=== PATIENT | male | born 1945 | race Caucasian/White ===

== ENCOUNTER → 2024-09-22 11:15 | Outpatient (REF) | payer OTHER, SELFPAY | LOC: HWRAD 11:15 | PROVIDERS: ATTENDING PHYSICIAN Family Medicine | DX: S22.31XA Fracture of one rib, right side, initial encounter for closed fracture (principal); R55 Syncope and collapse | CPT/HCPCS: 71101 ==

== ENCOUNTER 2024-09-22 17:05 | Inpatient (IN) | payer OTHER, SELFPAY ==
[2024-09-22 14:01] VITALS: BP 160/80
[2024-09-22 14:26] VITALS: BMI 34.0
[2024-09-22 14:26] LABS: % Basophils 0.2 % (0-2); % Eosinophils 1.8 % (0-6); % Immature Granulocytes 0.3 % (0-0.5); % Lymphocytes 22.3 % (20.5-51.1); % Monocytes 7.8 % (1.7-9.3); % Neutrophils 67.6 % (42.2-75.2); Absolute Eosinophils 0.2 10^3/uL (0-0.7); Absolute Monocytes 0.7 10^3/uL (0.1-0.6); Absolute Neutrophils 6.1 10^3/uL (1.4-6.5); Hematocrit 36.9 % (39.0-52.0); Hemoglobin 12.8 g/dL (13.0-18.0); Mean Corp Hgb Conc. 34.7 g/dL (33.0-37.0); Mean Corpuscular Hgb 33.7 pg (27.0-31.0); Mean Corpuscular Volume 97.1 fL (80.0-94.0); Mean Platelet Volume 9.2 fL (7.4-10.4); Nucleated Red Blood Cells % 0 % (-); Platelet Count 257 10^3/uL (130-400); Red Cell Dist. Width 13.5 % (11.5-14.5)
[2024-09-22 14:27] VITALS: BP 173/83
--- NOTE | 2024-09-22 14:36 | ED.GENMED ---
History of Present Illness
General
Chief Complaint: Fainting/Passed Out
Source: patient
Exam Limitations: none
Time Seen by Provider: 09/22/24 14:22
History of Present Illness
History of Present Illness:
79-year-old male with a syncopal episode while vomiting 2 days ago. Fell hit his right lateral ribs. Complaining of ongoing right lateral rib pain. Also has a Linq recorder for previous near syncope. Contacted his fuel cell assembler who noted a rhythm
issue and was sent immediately to the ER. Patient has no other complaints currently except for right lateral rib pain.
Past History
Past History
ED Past Medical History: GERD, HTN, NIDDM and Other (Pulmonary embolism following a knee replacement December 2008 ); Negative CAD
ED Past Surgical History: Orthopedic (right TKR, right shoulder rotator cuff repair, ulner nerve repair), Tonsilectomy and Other (deviated septum)
Social History
Tobacco: Non-smoker
Alcohol: Occasional
Drug: None
Personal:
Living: with family
Review of Systems
Review of Systems
All Other Systems: Not applicable
Respiratory: Reports no symptoms
ABD/GI: Reports no symptoms
Phy Exam
Physical Exam
Physical Exam:
GENERAL: Alert and oriented in no apparent distress. Normocephalic atraumatic
EYE: Orbits normal.
NECK: Supple
CARDIAC: Regular rate and rhythm without any obvious murmurs.
LUNGS: Clear breath sounds,normal. Tenderness right lateral ribs. No crepitus
ABDOMEN: Soft, without focal tenderness or distention
NEUROLOGICAL: Alert and oriented , grossly non-focal
SKIN: Warm and dry, no rash or lesion, no discoloration, skin intact.
MUSCULOSKELETAL: No edema,no deformity.Good color
PSYCH: Normal and appropriate interaction.
Course
Orders/Labs/Results
Orders:
Orders
09/22/24 14:09
Electrocardiogram (*1) Urgent
Reason for Study: Syncope
EKG- Treatment ONCE
09/22/24 14:18
Complete Blood Count/With Diff Urgent
Comprehensive Metabolic Panel Urgent
PT/INR [Prothrombin Time] Urgent
PTT Urgent
Troponin I Urgent
Abnormal Lab Results
09/22/24
14:18
RBC 3.80 L 10^6/uL
(4.70-6.10)
Hgb 12.8 L g/dL
(13.0-18.0)
Hct 36.9 L %
(39.0-52.0)
MCV 97.1 H fL
(80.0-94.0)
MCH 33.7 H pg
(27.0-31.0)
Absolute Monos (auto) 0.7 H 10^3/uL
(0.1-0.6)
PT 14.8 H Sec
(11.4-14.6)
APTT 35.1 H Sec
(23.4-35.0)
Sodium 132 L mmol/L
(135-145)
Potassium 5.3 H mmol/L
(3.5-5.1)
Glucose 136 H mg/dl
(70-99)
09/22/24 14:18
09/22/24 14:18
Vital Signs
Initial and Last Documented VS:
Initial Vital Signs
Temp Pulse Resp BP Pulse Ox
97.9 F 68 18 160/80 99
09/22/24 14:01 09/22/24 14:01 09/22/24 14:01 09/22/24 14:01 09/22/24 14:01
Last Documented Vital Signs
Temp Pulse Resp BP Pulse Ox
97.9 F 68 18 160/80 99
09/22/24 14:01 09/22/24 14:01 09/22/24 14:01 09/22/24 14:01 09/22/24 14:01
*Radiology
Radiology exam reviewed: preliminary read by ED provider (Outpatient x-rays reviewed. No obvious pneumothorax)
*Pulse Oximetry
Patient hypoxic: no
*EKG
Interpreted by ED Provider?: Yes
Interpretation: abnormal
Comparison EKG: changes noted
Heart Rate: 55
Rate: bradycardiac
[place]: normal axis
Interval: second degree mobitz I
Ischemia: non-specific ST changes
*Tank Pumper Panelboard Interpretation
Rate: bradycardiac
Interpretation: abnormal
Heart Rate: 54
Rhythm: other (Type II Wenke Bach)
*Critical Care Note
Total Time (30-74mins, 75-104mins- exclusive of procedures): Not Applicable
Update Note
Update Note:
Loop recorder showed prolonged asystole. Referred to cardiology.
ED Attending Note
-
Portions of this chart may have been created with voice recognition software.� Occasional wrong word or��sound alike� substitutions may have occurred due to the inherent limitations of voice recognition software.
Discharge Plan
Departure
Patient Disposition: Admit
Date of Disposition: 09/22/24
Time of Disposition: 14:37
Presentation/result/management discussed w/ accepting MD/DO: Cardiology
Discharge Problem:
High degree heart block/syncope, Recent asystole, Right lateral rib trauma
Prescriptions:
No Action
loperamide 2 MG capsule
2 mg PO BIDPRN PRN (Reason: diarrhea)
metformin 500 MG tablet
500 mg PO QPM
atorvastatin 10 MG tablet
10 mg PO DAILY
Vitamin D-3
2,000 units PO DAILY
acyclovir [Zovirax] 400 MG tablet
400 mg PO BID
pantoprazole 40 MG tablet,delayed release (DR/EC)
40 mg PO DAILY Qty: 30 0RF
meloxicam 15 MG tablet
15 mg PO DAILY
tadalafil [Cialis] 2.5 MG tablet
2.5 mg PO PRN PRN (Reason: ED)
codeine-guaifenesin 10 ML liquid
10 ml PO BID PRN (Reason: cough) Qty: 200 0RF
Interventions
Interventions:
*Risk Screen - Suicide Last Done: 09/22/24 14:01
*General Assessment Last Done: 09/22/24 14:36
*Neglect/Abuse Screening Last Done: 09/22/24 14:36
ED- Fall Risk Assessment Last Done: 09/22/24 14:36
*ED COVID-19 Vaccine History Last Done: 09/22/24 14:36
ED- Cardiac Assessment Last Done: 09/22/24 14:36
ED- Neurological Assessment Last Done: 09/22/24 14:36
Discharge Date and Time
Print Language: OMANI
[2024-09-22 14:40] LABS: APTT 35.1 Sec (23.4-35.0); INR 1.11; PT 14.8 Sec (11.4-14.6)
[2024-09-22 14:44] LABS: ALT (SGPT) 18 U/L (0-50); AST (SGOT) 23 U/L (17-59); Albumin 3.9 g/dl (3.5-5.0); Alkaline Phosphatase 46 U/L (38-126); Blood Urea Nitrogen 19 mg/dl (9-20); Calcium 9.2 mg/dl (8.4-10.2); Carbon Dioxide 28 mmol/L (22-30); Chloride 98 mmol/L (98-107); Estimated Creatinine Clearance 59 ml/min; Glucose 136 mg/dl (70-99); Potassium 5.3 mmol/L (3.5-5.1); Sodium 132 mmol/L (135-145); Total Bilirubin 0.4 mg/dl (0.2-1.3); Total Protein 6.3 g/dl (6.3-8.2); eGFR > 60.00
[2024-09-22 14:55] LABS: Troponin I < 0.012 ng/ml
[2024-09-22 15:00] VITALS: BP 104/59
--- NOTE | 2024-09-22 15:07 | CON.CAR ---
Addendum entered and electronically signed by Musa Cheek DO 09/22/24 16:10:
I saw and examined the patient.
The Technical Sales Representative's note was reviewed and I agree with the note.
Comment:
GENERAL: no acute distress, obese
EYE: sclera anicteric
NECK: Supple, no JVD, no carotid bruit appreciated
ENT: normal nose, moist mucosal membranes
CARDIAC: Regular rate and rhythm, occasional ectopy, +S1/S2, no murmur, rubs, or gallops
CHEST/PULMONARY: Normal effort, clear breath sounds; ILR appreciated CIED site well-healed
ABDOMEN: Soft, without focal tenderness or distention
NEUROLOGICAL: Alert and oriented x3
SKIN: Warm and dry, no rash
PSYCH: Normal and appropriate interaction.
Telemetry demonstrating sinus rhythm with occasional second-degree type I AV block.
EKG sinus rhythm second-degree AV block type I
PCP: Dr. Gutierres
Postal Service Clerk: Dr. Lazarus Hale
Impression:
Presented after syncopal episode 09/20
R rib pain
20 second pause on Linq monitor 09/20
Hyperkalemia
Hyponatremia
Recurrent syncope
Wenckebach
Linq monitor 04/05/2023
HTN
HLD
DM2
CKD
h/o prostate cancer
Bronchiectasis
ELIA, untreated
Obesity
Echo 10/25/2019: EF 60-65%, mild cLVH, posterior MAC, mild MR, trace TR, estimated PAP 34 mmHg
Echo 09/22/2024: Study pending
Patient complex individual with recurrent syncope status post ILR implant 2022. Patient experienced an episode of syncope 09/20/2024 associated with nausea and vomiting. Interrogation of his ILR, patient experienced an 8-second
asystolic pause and a 20 second asystolic pause. Patient is a longstanding history of recurrent syncope and has not experienced syncope for roughly 1 year. It was recommended following discussion with patient over the phone by our office that
given his symptomatic asystolic pauses that he should proceed to ED urgently and no longer drive in the setting of syncope with pauses. Patient reports overall feeling well. Patient has any chest pain, palpitations, lightheadedness, dizziness,
near-syncope, syncope, or weakness since the episode on Wednesday. In discussion with him about the pauses that he experienced on the monitor, he denies symptoms associated with them but cannot recall. I reviewed with patient regarding benefits,
risks, alternatives to pacemaker implantation. Regarding pacemaker, we discussed pacemaker indications and device implant in detail. For implant there is an approximate 1:1000 risk of [place]/stroke/ and a 1% risk of
pneumothorax/tamponade/infection/bleeding. We also discussed post procedure implant restrictions including positions to avoid with implant arm for first six weeks after implant as well as driving restrictions. I took time to answer all questions.
We also discussed removal of ILR at the time of pacemaker implant. Patient verbalized understanding and agreed with plan. In further discussion with patient, he reports that he has had a large meal at roughly 1:00 pm. I discussed with anesthesia
regarding possibility of pacemaker implant and if sedation would be possible however, given patient's large meal, anesthesia is unable to perform sedation/anesthesia services for the procedure today. Additionally, conscious sedation not likely to
be an option for this patient given his significant comorbidities including obesity, sleep apnea, bronchiectasis. With this in mind and given patient's current stability (sinus rhythm/sinus rhythm with second-degree type I AV block, hemodynamically
stable, stable blood pressure), will recommend admission to hospitalist service and monitoring on telemetry. ZOLL pads on patient. Plan for implant of pacemaker and ILR removal on 09/25/2024. N.p.o. after midnight 09/24/2024 into Wednesday.
Patient verbalized understanding and agreed with this plan. In the meantime, we will also reassess cardiac function with echocardiogram.
Original Note:
Consultation
Consultation Request
Date/Time Consultation Requested: 09/22/2024
Date/Time Consultation Performed: 09/22/2024
Requesting Provider: Dr. Ku
Performing Provider: Mary Kee PA-C for Dr. Cheek
Reason for Consultation: Syncope, 20 second pause on Linq monitor
Medical History
-
History of Present Illness:
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 He presented to [facility] for evaluation after syncopal episode on .
He reports he had an upset stomach that day and had one episode of vomiting. He reports it was only a single episode of vomiting but then he became dizzy and had syncopal episode. Episode was not witnessed. He came back to and noted severe R sided
rib pain. Pain persisted over the next few days, so he called his PCP for an appointment this AM. He was seen and ordered a rib xray to assess for broken ribs, however given syncope, he was recommended to call the cardiology office for evaluation as
well. He had his Linq monitor disconnected at home, so with the help of device clinic [employer], monitor was rebooted and he was noted to have an 8 second and 20 second pause on 09/20 around the time of syncope. He was therefore referred to ER for PPM
placement. He reports he has been back to his usual state of health and has had no further nausea or vomiting. Denies any fevers, chest pain, palpitations, dizziness, lightheadedness, or SOB. His only ongoing complaint is R rib pain.
PMH:
Recurrent syncope
Wenckebach
Linq monitor 04/05/2023
HTN
HLD
DM2
CKD
h/o prostate cancer
Bronchiectasis
Past Medical History
Past Medical History: Other (In HPI)
Past Surgical History: Other (Linq monitor placement, R TKA, tonsillectomy, b/l cataract surgery, ulnar nerve surgery)
Social History
Tobacco: Non-Smoker
Alcohol: None
Drug: None
Personal:
Living: With Family
Employment: Retired
Family History
Family History: CAD and Diabetes
Allergies / Home Medications
Allergy/AdvReac Type Severity Reaction Status Date / Time
No Known Allergies Allergy Verified 09/22/24 14:09
�Medication �Instructions �Recorded �Confirmed �Type
loperamide 2 mg capsule 2 mg PO BIDPRN PRN diarrhea 11/26/10 04/05/23 History
metformin 500 mg tablet 500 mg PO QPM 12/16/12 04/05/23 History
Vitamin D-3 2,000 units PO DAILY 04/19/14 04/05/23 History
atorvastatin 10 mg tablet 10 mg PO DAILY 04/19/14 04/05/23 History
acyclovir 400 mg tablet (Zovirax) 400 mg PO BID 05/30/15 04/05/23 History
pantoprazole 40 mg tablet,delayed 40 mg PO DAILY #30 tabs 05/30/15 04/05/23 Rx
release
codeine 10 mg-guaifenesin 100 mg/5 10 ml PO BID PRN cough ##200 08/28/19 04/05/23 Rx
mL oral liquid
meloxicam 15 mg tablet 15 mg PO DAILY 08/28/19 04/05/23 History
tadalafil 2.5 mg tablet (Cialis) 2.5 mg PO PRN PRN ED 08/28/19 04/05/23 History
Review of Systems
-
History Source: Patient
All other systems: Negative unless noted
Physical Exam
Vital Signs
Temp Pulse Resp BP Pulse Ox
97.9 F 68 18 160/80 99
09/22/24 14:01 09/22/24 14:01 09/22/24 14:01 09/22/24 14:01 09/22/24 14:01
Lab Results
09/22/24 14:18
09/22/24 14:18
Troponin I < 0.012 ng/ml 09/22/24 14:18
Physical Exam
General: Well Developed, Well Nourished and No Apparent Distress
HEENT: Normocephalic, Anicteric and Moist Mucous Membranes
Respiratory: Clear and Non Labored Respirations
Cardiac: S1/S2 and Regular Rhythm
Musculoskeletal: No Clubbing, No Cyanosis and No Edema
Skin: Warm and Dry
Neuro: AO x 3 and Nonfocal/Grossly Intact
Psych: Calm
Impression / Plan
-
PCP: Dr. Gutierres
Postal Service Clerk: Dr. Lazarus Hale
Impression:
Presented after syncopal episode 09/20
R rib pain
20 second pause on Linq monitor 09/20
Hyperkalemia
Hyponatremia
Recurrent syncope
Wenckebach
Linq monitor 04/05/2023
HTN
HLD
DM2
CKD
h/o prostate cancer
Bronchiectasis
ELIA
Echo 10/25/2019: EF 60-65%, mild cLVH, posterior MAC, mild MR, trace TR, estimated PAP 34 mmHg
Echo 09/22/2024: Study pending
Plan:
-Presented after syncopal episode 09/20. Linq monitor noted 8 second and 20 second pause 09/20 around the time of syncope.
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
-Syncopal episode on 09/20/2024 was the first episode since Linq monitor implanted.
-Discussed PPM implant with patient and he is agreeable. Unfortunately, patient had a full meal this afternoon at approximately 1PM.
-After discussion w/ anesthesia, would be high risk to proceed w/ PPM implant today. Will admit for observation over the weekend and will proceed with PPM implant Tuesday 09/25.
-OK to eat as no procedures planned today.
-Check echo. Prior echo in 2019 with preserved EF and mild MR. Reportedly had echo at outside hospital in 2021 in the setting of syncope, however report unavailable to review.
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 HR 55 bpm.
-Troponin negative x1. No chest pain.
-K 5.3, continue to follow.
-Patient's only complaint is ongoing R rib pain. Had rib series xray this AM as OP. Official report pending. Continue pain management per ED team/primary service.
-BP elevated in ER, continue to follow. Not on any antihypertensive medications.
-Continue lipitor 10mg daily.
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 He presented to [facility] for evaluation after syncopal episode on .
He reports he had an upset stomach that day and had one episode of vomiting. He reports it was only a single episode of vomiting but then he became dizzy and had syncopal episode. Episode was not witnessed. He came back to and noted severe R sided
rib pain. Pain persisted over the next few days, so he called his PCP for an appointment this AM. He was seen and ordered a rib xray to assess for broken ribs, however given syncope, he was recommended to call the cardiology office for evaluation as
well. He had his Linq monitor disconnected at home, so with the help of device clinic [employer], monitor was rebooted and he was noted to have an 8 second and 20 second pause on 09/20 around the time of syncope. He was therefore referred to ER for PPM
placement. He reports he has been back to his usual state of health and has had no further nausea or vomiting. Denies any fevers, chest pain, palpitations, dizziness, lightheadedness, or SOB. His only ongoing complaint is R rib pain.
Data Reviewed
-
EKG: Tracing Personally Visualized and interpreted
Labs: Labs Reviewed by me
Old Records: Reviewed
[2024-09-22 16:00] VITALS: BP 116/52
--- NOTE | 2024-09-22 16:46 | HPS.HSE ---
Family Physician
-
Family Physician: Neeru Rizzo
Chief Complaint
-
syncope
History of Present Illness
79-year-old male past medical history of prior syncopal episodes with Linq monitor, hypertension, hyperlipidemia, diabetes, CKD, prostate cancer, bronchiectasis, obstructive sleep apnea, obesity, presenting with syncope.
Patient experienced syncopal episode on 09/20 with nausea and vomiting. He fell onto his right lateral ribs. He is complaining of ongoing right lateral rib pain.
He contacted his high court justice who noted a rhythm issue and was sent immediately to the emergency room. As per cardiology interrogation of the Linq monitor showed 8-second asystolic pause and 22nd asystolic pause. He has a history of recurrent
syncope but has not had syncope for 1 year.
Patient denies chest pain, palpitation, lightheadedness or dizziness or weakness since the episode 2 days ago.
He denies smoking. He drinks a beer occasionally.
Medical History
Past Medical History
Past Medical History: Reports Other (prior syncopal episodes with Linq monitor, hypertension, hyperlipidemia, diabetes, CKD, prostate cancer, bronchiectasis, obstructive sleep apnea, obesity,)
Past Surgical History: Reports None
Social History
Tobacco: Non-smoker
Alcohol: Occasional
Drug: None
Family History
Family History: Not pertinent
Allergies / Home Medications
Allergies reflects when Allergies were last updated in [employer].
Home Medications with original date entered in [employer]
Allergy/Medication List:
Allergies
Allergy/AdvReac Type Severity Reaction Status Date / Time
No Known Allergies Allergy Verified 09/22/24 14:09
Home Medications
loperamide 2 mg capsule 2 mg PO BIDPRN PRN diarrhea 11/26/10
metformin 500 mg tablet 500 mg PO QPM 12/16/12
atorvastatin 10 mg tablet 10 mg PO DAILY 04/19/14
cholecalciferol (vitamin D3) 25 mcg (1,000 unit) tablet (Vitamin D3) 25 mcg PO DAILY ##0 04/19/14
pantoprazole 40 mg tablet,delayed release 40 mg PO DAILY #30 tabs 05/30/15
meloxicam 15 mg tablet 15 mg PO DAILY 08/28/19
acyclovir 400 mg tablet 400 mg PO BID 09/22/24
albuterol sulfate 1.25 mg/3 mL solution for nebulization 1.25 mg inhalation R DAILY 09/22/24
azelastine 137 mcg (0.1 %) nasal spray 1 spray intranasal DAILY 09/22/24
tamsulosin 0.4 mg capsule (Flomax) 0.4 mg PO DAILY 09/22/24
umeclidinium 62.5 mcg-vilanterol 25 mcg/actuation powdr for inhalation (Anoro Ellipta) 1 inh inhalation R DAILY 09/22/24
Review of Systems
-
History Source: Patient
A 12 point ROS was completed and negative except as noted: Yes
Constitutional: Reports No Symptoms
EENT: Reports No Symptoms
Respiratory: Reports See HPI
Cardiac: Reports See HPI
Abdomen/GI: Reports No Symptoms
: Reports No Symptoms
Musculoskeletal: Reports No Symptoms
Skin: Reports No Symptoms
Neurological: Reports No Symptoms
Endocrine: Reports No Symptoms
Hematologic/Lymphatic: Reports No Symptoms
Psych: Reports No Symptoms
Physical Exam
Vital Signs
Vital Signs
Temp Pulse Resp BP Pulse Ox
97.9 F 68 18 160/80 99
09/22/24 14:01 09/22/24 14:01 09/22/24 14:01 09/22/24 14:01 09/22/24 14:01
Physical Exam
General: Well Developed, Well Nourished and No Apparent Distress
HEENT: NormoCephalic, Moist mucous membranes and Atraumatic
Respiratory: Clear
Cardiac: S1/S2 and Regular Rhythm; No Murmur or Rub
GI: Soft, Non Tender, Non Distended and Normal Bowel Sounds; No Organomegaly
Rectal: Deferred by Provider
Musculoskeletal: No Clubbing, No Cyanosis and No Edema
Skin: No Rash
Neuro: Nonfocal/grossly intact
Laboratory Results
-
09/22/24 14:18
09/22/24 14:18
Laboratory Results
PT 14.8 Sec (11.4-14.6) H 09/22/24 14:18
INR 1.11 09/22/24 14:18
APTT 35.1 Sec (23.4-35.0) H 09/22/24 14:18
Total Bilirubin 0.4 mg/dl (0.2-1.3) 09/22/24 14:18
AST 23 U/L (17-59) 09/22/24 14:18
ALT 18 U/L (0-50) 09/22/24 14:18
Alkaline Phosphatase 46 U/L (38-126) 09/22/24 14:18
Troponin I < 0.012 ng/ml 09/22/24 14:18
Data Reviewed
-
Lab Data: Labs Reviewed by me
Old Records: Reviewed
Impression/Plan
-
IMPRESSION:
PLAN:
# Syncope secondary to asystolic pauses
# History of recurrent syncopal episodes with Linq monitor
-Original plan was for pacemaker placement today however patient had a large meal and pacemaker has been postponed to Wednesday
-N.p.o. past midnight on Wednesday night for pacemaker Wednesday morning
-Patient currently in Wenckebach rhythm with heart rate of 55 as per EKG, hemodynamically stable
-Chest/rib x-ray unremarkable
-Echo pending
-Cardiology following
# Hyperkalemia
-Continue to monitor
Arthritis
-Continue meloxicam
Essential hypertension
Hyperlipidemia
-Continue statin
Type 2 diabetes
-Hold metformin
-On sliding scale
CKD
Prostate cancer
-Continue tamsulosin
Obstructive sleep apnea
Bronchiectasis
-Continue inhalers
Obesity
Herpes prevention
-Continue Valtrex
Full code
DVT prophylaxis�heparin
Regular diet
[2024-09-22] MEDS: TYLENOL 650 MG PO (17:49)
[2024-09-22 19:00] VITALS: BP 152/81; BMI 33.2
[2024-09-22] MEDS: MOBIC PO (21:48)
[2024-09-22] MEDS: LIPITOR PO (21:48)
[2024-09-22] MEDS: FLOMAX PO (21:48)
[2024-09-22] MEDS: PROTONIX PO (21:48)
[2024-09-22] MEDS: ZOVIRAX PO (21:50)
[2024-09-22 22:00] LABS: Glucose - Point of Care 127 mg/dl (70-99)
[2024-09-22 22:54] VITALS: BP 112/63
[2024-09-23] VITALS (7 sets, daily range): BP systolic 98–141; BP diastolic 46–105
--- NOTE | 2024-09-23 01:01 | PTCARENOTE ---
Received pt from ER into 2255. AAOx3 SB with Mobitz 1 A/V block on the monitor BP stable. Ambulatory in the room. Call bernal within reach.
[2024-09-23] MEDS: HEPARIN 5000 UNITS SC ×4 (01:29→22:59)
[2024-09-23 02:50] LABS: % Basophils 0.4 % (0-2); % Eosinophils 3.4 % (0-6); % Immature Granulocytes 0.1 % (0-0.5); % Lymphocytes 30.1 % (20.5-51.1); % Monocytes 8.9 % (1.7-9.3); % Neutrophils 57.1 % (42.2-75.2); Absolute Eosinophils 0.3 10^3/uL (0-0.7); Absolute Lymphocytes 2.3 10^3/uL (1.2-3.4); Absolute Monocytes 0.7 10^3/uL (0.1-0.6); Absolute Neutrophils 4.3 10^3/uL (1.4-6.5); Hemoglobin 12.7 g/dL (13.0-18.0); Mean Corp Hgb Conc. 34.3 g/dL (33.0-37.0); Mean Corpuscular Hgb 33.1 pg (27.0-31.0); Mean Corpuscular Volume 96.4 fL (80.0-94.0); Mean Platelet Volume 9.5 fL (7.4-10.4); Nucleated Red Blood Cells % 0 % (-); Platelet Count 244 10^3/uL (130-400); Red Blood Cell Count 3.84 10^6/uL (4.70-6.10); Red Cell Dist. Width 13.5 % (11.5-14.5); White Blood Cell Count 7.6 10^3/uL (4.8-10.8)
[2024-09-23] MEDS: TORADOL 15 MG IV (03:00)
[2024-09-23 03:03] LABS: ALT (SGPT) 18 U/L (0-50); AST (SGOT) 20 U/L (17-59); Albumin 3.8 g/dl (3.5-5.0); Alkaline Phosphatase 51 U/L (38-126); Blood Urea Nitrogen 19 mg/dl (9-20); Carbon Dioxide 24 mmol/L (22-30); Chloride 103 mmol/L (98-107); Estimated Creatinine Clearance 77 ml/min; Glucose 103 mg/dl (70-99); Potassium 4.4 mmol/L (3.5-5.1); Sodium 136 mmol/L (135-145); Total Bilirubin 0.3 mg/dl (0.2-1.3); Total Protein 6.1 g/dl (6.3-8.2); eGFR > 60.00
--- NOTE | 2024-09-23 03:20 | PTCARENOTE ---
Pt c/o rt rib pain stated that it is preventing him from falling asleep. Tylenol and Lidocaine patch was offered but he refused 'they won't help. If I don't get something stronger then I will leave in the morning and return Wednesday for the
procedure.' Lai Ospina DIRECTOR NEWS notified and ordered 15 mg Toradol IVP.
--- NOTE | 2024-09-23 06:33 | W.PN.HOSP.TC ---
Today's Communication/Plan
-
Treat rib pain
c/w tele
Assessment / Plan
Assessment / Plan
Physical Exam
General: Well Developed, Well Nourished and No Apparent Distress
HEENT: Normocephalic, Moist mucous membranes and Atraumatic
Respiratory: limited, no wheezes
Cardiac: S1/S2
GI: Soft, Non Tender,obese.
Rectal: No bleeding.
Musculoskeletal: No Clubbing, No Cyanosis and No Edema. Back: tenderness around right lower posterior chest wall, no swelling or bruising.
Skin: No Rash
Neuro: Nonfocal/grossly intact, oriented X3
Psych: calm
# Syncope secondary to asystolic pauses
# History of recurrent syncopal episodes with Linq monitor
-Original plan was for pacemaker placement today however patient had a large meal and pacemaker has been postponed to Wednesday
-N.p.o. past midnight on Wednesday night for pacemaker Wednesday
-Patient currently in Wenckebach rhythm with heart rate of 55 as per EKG, hemodynamically stable
-Chest/rib x-ray unremarkable
-Echo pending
-Cardiology following
# Hyperkalemia
-Continue to monitor
Arthritis
-Continue meloxicam
Essential hypertension
Hyperlipidemia
-Continue statin
Type 2 diabetes
-Hold metformin
-On sliding scale
CKD
Prostate cancer
-Continue tamsulosin
Obstructive sleep apnea
Bronchiectasis
-Continue inhalers
Obesity
Herpes prevention
-Continue Valtrex
Full code
DVT prophylaxis�heparin
Regular diet
Total time spent to see the patient, examine the patient, review data and lab results, discuss the treatment plan with patient, nursing staff around 55 minutes
Anticipated Discharge: > 48 hours
Subjective/Interval History
-
Date of Service: September 23, 2024
Right sided rib pain
No chest pain
No sob
Objective Data
-
Labs:
Laboratory Results
09/23/24
02:28
WBC 7.6
Hgb 12.7 L
Hct 37.0 L
Plt Count 244
Sodium 136
Potassium 4.4
Chloride 103
Carbon Dioxide 24
BUN 19
Creatinine 0.9
Glucose 103 H
Calcium 9.0
Total Bilirubin 0.3
AST 20
ALT 18
Alkaline Phosphatase 51
Vital Signs:
Vital Signs
Temp Pulse Resp BP Pulse Ox
98.5 F 48 15 141/61 97
09/23/24 03:01 09/23/24 03:01 09/23/24 03:01 09/23/24 02:55 09/23/24 03:01
I&O
09/21/24 09/22/24 09/23/24
06:59 06:59 06:59
Output Total 700 / 700
Balance -700 / -700
--- NOTE | 2024-09-23 06:56 | W.PN.CARDCBS ---
Addendum entered and electronically signed by Marvin Tran MD 09/23/24 08:04:
Patient seen and examined
Agree with notes and assessment
Agree with plan
Telemetry reviewed without significant pause and periods of 2-1 and 3-2 periodicity
Exam:
Physical Exam
General: no apparent distress, not acutely ill
Neck: supple. no meningeal signs. normal psoterior pharynx
Heart: s1/s2 regular rate and rhythm, no murmur. equal radial pulses.
Lungs: no acute respiratory distress. clear bilaterally
Abdomen: normal bowel sounds. not tender. no CVAT
Neuro: alert and oriented. no focal neurological deficits
Skin: no rash
Psychiatric: well kept. interactive and cooperative
Extremities: no edema. no calf tenderness. negative homans. good distal pulses
Impression:
Presented after syncopal episode 09/20
R rib pain
20 second pause on Linq monitor 09/20
Hyperkalemia
Hyponatremia
Recurrent syncope
Wenckebach
Linq monitor 04/05/2023
HTN
HLD
DM2
CKD
h/o prostate cancer
Bronchiectasis
ELIA
Echo 10/25/2019: EF 60-65%, mild cLVH, posterior MAC, mild MR, trace TR, estimated PAP 34 mmHg
Echo 09/22/2024: EF 55 to 60%, mild concentric LVH, mitral sclerosis, mild MR, mild TR, estimated PAP 30 to 35 mmHg
Plan:
-Presented after syncopal episode 09/20. Linq monitor noted 8 second and 20 second pause 09/20 around the time of syncope. Evaluated by Dr. Cheek yesterday in the afternoon.
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
-No significant pauses noted on telemetry overnight.
-Patient is agreeable to proceed w/ PPM implant Angelito09/25. Please note EP evaluation yesterday. He ate lunch yesterday and it was deemed too high risk to do the implant yesterday. As such she is on for Tuesday 09/25
-Only complaint is significant R rib pain. Discussed w/ hospitalist who will provide stronger rx for pain management.
-Echo 09/22 noted preserved EF with mild MR, stable form echo in 2019.
-Continue lipitor 10mg daily.
Original Note:
Today's Communication / Plan
-
Continue pain management per primary service
Follow on tele
PPM Tuesday 09/25
Impression / Plan
-
PCP: Dr. Gutierres
Coremaker Apprentice: Dr. Lazarus Hale
Impression:
Presented after syncopal episode 09/20
R rib pain
20 second pause on Linq monitor 09/20
Hyperkalemia
Hyponatremia
Recurrent syncope
Wenckebach
Linq monitor 04/05/2023
HTN
HLD
DM2
CKD
h/o prostate cancer
Bronchiectasis
ELIA
Echo 10/25/2019: EF 60-65%, mild cLVH, posterior MAC, mild MR, trace TR, estimated PAP 34 mmHg
Echo 09/22/2024: EF 55 to 60%, mild concentric LVH, mitral sclerosis, mild MR, mild TR, estimated PAP 30 to 35 mmHg
Plan:
-Presented after syncopal episode 09/20. Linq monitor noted 8 second and 20 second pause 09/20 around the time of syncope.
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
-No significant pauses noted on telemetry overnight. HR stable this AM.
-Patient is agreeable to proceed w/ PPM implant Wednesday, 09/25.
-Only complaint is significant R rib pain. Discussed w/ hospitalist who will provide stronger rx for pain management.
-Echo 09/22 noted preserved EF with mild MR, stable form echo in 2019.
-Continue lipitor 10mg daily.
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 He presented to [facility] for evaluation after syncopal episode on .
He reports he had an upset stomach that day and had one episode of vomiting. He reports it was only a single episode of vomiting but then he became dizzy and had syncopal episode. Episode was not witnessed. He came back to and noted severe R sided
rib pain. Pain persisted over the next few days, so he called his PCP for an appointment this AM. He was seen and ordered a rib xray to assess for broken ribs, however given syncope, he was recommended to call the cardiology office for evaluation as
well. He had his Linq monitor disconnected at home, so with the help of device clinic [employer], monitor was rebooted and he was noted to have an 8 second and 20 second pause on 09/20 around the time of syncope. He was therefore referred to ER for PPM
placement. He reports he has been back to his usual state of health and has had no further nausea or vomiting. Denies any fevers, chest pain, palpitations, dizziness, lightheadedness, or SOB. His only ongoing complaint is R rib pain.
Progress Note - Coremaker Apprentice
Subjective
Date of Service: September 23, 2024
Only complaint is ongoing R rib pain. No dizziness/lightheadedness
Objective
Labs:
09/23/24 02:
09/23/24:
Labs
Hgb 12.7 g/dL (13.0-18.0) L 09/23/24
Hct 37.0 % (39.0-52.0) L 09/23/24:
Plt Count 244 10^3/uL (130-400) 09/23/24
PT 14.8 Sec (11.4-14.6) H 09/22/24 14:18
INR 1.11 09/22/24 14:18
APTT 35.1 Sec (23.4-35.0) H 09/22/24 14:18
Sodium 136 mmol/L (135-145) 09/23/24 02:28
Potassium 4.4 mmol/L (3.5-5.1) 09/23/24 02:28
BUN 19 mg/dl (9-20) 09/23/24 02:28
Creatinine 0.9 mg/dL (0.7-1.3) 09/23/24 02:28
Glucose 103 mg/dl (70-99) H 09/23/24 02:28
Troponins
09/22/24
14:18
Troponin I < 0.012
Vital Signs and I&O:
Vital Signs
Temp Pulse Resp BP Pulse Ox
98.5 F 48 15 141/61 97
09/23/24 03:01 09/23/24 03:01 09/23/24 03:01 09/23/24 02:55 09/23/24 03:01
Vital Signs
Temp Pulse Resp BP Pulse Ox
98.5 F 48 15 141/61 97
09/23/24 03:01 09/23/24 03:01 09/23/24 03:01 09/23/24 02:55 09/23/24 03:01
Intake & Output
09/20/24 09/21/24 09/22/24 09/23/24
06:59 06:59 06:59 06:59
Output Total 1100 / 1100
Balance -1100 / -1100
Physical Exam
Physical Exam
GEN: No distress, awake, alert, oriented x3
HEENT: supple, anicteric, mmm
LUNGS: CTA b/l, no wheezes/rales
CV: Reg, S1/S2, no murmur
EXT: No clubbing, cyanosis, or edema
NEURO: Gross non-focal
SKIN: Warm, dry, no rash
[2024-09-23] MEDS: DILAUDID 0.5 MG IV ×4 (07:15→23:32)
[2024-09-23] MEDS: STRIVERDI RESPIMAT 2 PUFF INH (08:44)
[2024-09-23] MEDS: SPIRIVA RESPIMAT 2.5 MCG 2 PUFF INH (08:44)
[2024-09-23] MEDS: VENTOLIN NEBULES 1.25 MG INH (08:44)
[2024-09-23 09:06] LABS: Glycohemoglobin (HgbA1c) 5.6 % (4.0-5.6)
[2024-09-23 09:54] LABS: Glucose - Point of Care 131 mg/dl (70-99)
[2024-09-23] MEDS: LIPITOR 10 MG PO (09:55)
[2024-09-23] MEDS: MOBIC 15 MG PO (09:55)
[2024-09-23] MEDS: TYLENOL 1000 MG PO ×3 (09:55→22:59)
[2024-09-23] MEDS: FLOMAX 0.4 MG PO (09:55)
[2024-09-23] MEDS: PROTONIX 40 MG PO (09:55)
[2024-09-23] MEDS: ZOVIRAX 400 MG PO ×2 (09:57→19:31)
[2024-09-23 12:40] LABS: Glucose - Point of Care 81 mg/dl (70-99)
[2024-09-23 17:16] LABS: Glucose - Point of Care 100 mg/dl (70-99)
[2024-09-23 19:05] LABS: Magnesium 2.2 mg/dl (1.6-2.3); Potassium 4.2 mmol/L (3.5-5.1)
--- NOTE | 2024-09-23 19:18 | PTCARENOTE ---
Pt obtained better rib pain relief with dilaudid every 4-5 hours . Telemetry continues with second degree, Mobitz 1 rhythm, several 2 second pauses. At @18:15 pt had several seconds of VT, he was asymptomatic. notified, potassium and
magnesium checked, both acceptable. Will monitor closely.
Pt and his were shown a pacemaker . Activity and driving guidelines were explained and understood.
[2024-09-23] MEDS: FLUSH (NSS) 1 FLUSH IV ×2 (19:33→23:33)
[2024-09-23 20:58] LABS: Glucose - Point of Care 101 mg/dl (70-99)
--- NOTE | 2024-09-23 21:27 | PTCARENOTE ---
Received patient at change of shift. Patient awake, alert, and oriented in bed. Pt c/o right side back/rib pain-- found if he puts pressure directly on location-- helps pain. RN massaged spot and patient 'felt better.' Gave dilaudid for 07/06-- see
NOV. BP 117/68, Mobitz 1 50s with pauses, 97% on room air. Patient did have run of VT right before change of shift. Dr. Tran ordered Mag and K labs. Results WNL-- notified Dr. Tran. No change in plan for time being. RN to inform Dr. Tran
with sustained VT or if patient becomes symptomatic. Discussed this with patient. Verbalized letting RN know of any changes. Call bernal within reach.
[2024-09-24 05:18] VITALS: BP 105/60
[2024-09-24] MEDS: DILAUDID 0.5 MG IV ×2 (05:22→23:28)
--- NOTE | 2024-09-24 06:22 | W.PN.HOSP.TC ---
Today's Communication/Plan
-
NPO past MN
CBC and BMP in AM
CT chest to look at chest wall
c/w pain control
Assessment / Plan
Assessment / Plan
Physical Exam
General: Well Developed, Well Nourished and No Apparent Distress
HEENT: Normocephalic, Moist mucous membranes and Atraumatic
Respiratory: limited, no wheezes. Tenderness on right lower posterior chest wall
Cardiac: S1/S2
GI: Soft, Non Tender,obese.
Rectal: No bleeding.
Musculoskeletal: No Clubbing, No Cyanosis and No Edema. Back: tenderness around right lower posterior chest wall, no swelling or bruising.
Skin: No Rash
Neuro: Nonfocal/grossly intact, oriented X3
Psych: calm
# Right posterior chest wall pain
Tenderness on palpation, no bruising or swelling. No hypoxia.
started after he fell and direct trauma
X ray no fractures but could have missed it due to acuity of event
c/w Tylenol and PRN Dilaudid for now
Order CT chest
# Syncope secondary to asystolic pauses
# History of recurrent syncopal episodes with Linq monitor
-Original plan was for pacemaker placement today however patient had a large meal and pacemaker has been postponed to Wednesday
-N.p.o. past midnight on Wednesday night for pacemaker Wednesday morning
-Patient currently in Wenckebach rhythm with heart rate of 55 as per EKG, hemodynamically stable
-Chest/rib x-ray unremarkable
-Echo pending
-Cardiology following
# Hyperkalemia
-Continue to monitor
Arthritis
-Continue meloxicam
Essential hypertension
Hyperlipidemia
-Continue statin
Type 2 diabetes
-Hold metformin
-On sliding scale
CKD
Prostate cancer
-Continue tamsulosin
Obstructive sleep apnea
Bronchiectasis
-Continue inhalers
Obesity
Herpes prevention
-Continue Valtrex
Full code
DVT prophylaxis�heparin
Regular diet
Total time spent to see the patient, examine the patient, review data and lab results, discuss the treatment plan with patient, nursing staff around 55 minutes
Anticipated Discharge: 24 - 48 hours
Subjective/Interval History
-
Date of Service: September 24, 2024
Still right rib pain requiring Dilaudid
no chest pain
Objective Data
-
Labs:
Laboratory Results
09/23/24
18:44
Potassium 4.2
Vital Signs:
Vital Signs
Temp Pulse Resp BP Pulse Ox
98.0 F 52 16 105/60 92
09/24/24 05:17 09/24/24 05:30 09/24/24 05:17 09/24/24 05:18 09/24/24 05:18
I&O
09/22/24 09/23/24 09/24/24
06:59 06:59 06:59
Intake Total 400 / 400
Output Total 1100 / 1100 525 / 525
Balance -1100 / -1100 -125 / -125
[2024-09-24 07:05] VITALS: BP 130/75
[2024-09-24] MEDS: SPIRIVA RESPIMAT 2.5 MCG 2 PUFF INH (07:40)
[2024-09-24] MEDS: VENTOLIN NEBULES 1.25 MG INH (07:42)
[2024-09-24] MEDS: STRIVERDI RESPIMAT 2 PUFF INH (07:42)
--- NOTE | 2024-09-24 08:37 | W.PN.CARDCBS ---
Today's Communication / Plan
-
Electrolytes checked and reviewed
Monitor on telemetry
Pacer 09/25
N.p.o. after midnight
Impression / Plan
-
PCP: Dr. Gutierres
Ed Manager: Dr. Lazarus Hale
Impression:
Presented after syncopal episode 09/20
R rib pain
20 second pause on Linq monitor 09/20
Hyperkalemia
Hyponatremia
Recurrent syncope
Wenckebach
Linq monitor 04/05/2023
HTN
HLD
DM2
CKD
h/o prostate cancer
Bronchiectasis
ELIA
Echo 10/25/2019: EF 60-65%, mild cLVH, posterior MAC, mild MR, trace TR, estimated PAP 34 mmHg
Echo 09/22/2024: EF 55 to 60%, mild concentric LVH, mitral sclerosis, mild MR, mild TR, estimated PAP 30 to 35 mmHg
Plan:
-Presented after syncopal episode 09/20. Linq monitor noted 8 second and 20 second pause 09/20 around the time of syncope.
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
-No significant pauses noted on telemetry overnight. HR stable this AM. He did have 2 short runs of asymptomatic nonsustained ventricular tachycardia yesterday with electrolytes checked and normal. Will monitor closely for bradycardia dependent
ventricular arrhythmias. These ventricular arrhythmias are likely related to his bradycardia and should be treated by the pacemaker. May need to consider outpatient ischemic evaluation
-Patient is agreeable to proceed w/ PPM implant Wednesday, 09/25.
-Only complaint is significant R rib pain. Discussed w/ hospitalist who will provide stronger rx for pain management.
-Echo 09/22 noted preserved EF with mild MR, stable form echo in 2019.
-Continue lipitor 10mg daily.
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 He presented to [facility] for evaluation after syncopal episode on .
He reports he had an upset stomach that day and had one episode of vomiting. He reports it was only a single episode of vomiting but then he became dizzy and had syncopal episode. Episode was not witnessed. He came back to and noted severe R sided
rib pain. Pain persisted over the next few days, so he called his PCP for an appointment this AM. He was seen and ordered a rib xray to assess for broken ribs, however given syncope, he was recommended to call the cardiology office for evaluation as
well. He had his Linq monitor disconnected at home, so with the help of device clinic [employer], monitor was rebooted and he was noted to have an 8 second and 20 second pause on 09/20 around the time of syncope. He was therefore referred to ER for PPM
placement. He reports he has been back to his usual state of health and has had no further nausea or vomiting. Denies any fevers, chest pain, palpitations, dizziness, lightheadedness, or SOB. His only ongoing complaint is R rib pain.
Progress Note - Ed Manager
Subjective
Date of Service: September 24, 2024
No changes
Reviewed telemetry
Objective
Labs:
09/23/24 02:28
09/23/24 18:44
Labs
Hgb 12.7 g/dL (13.0-18.0) L 09/23/24 02:28
Hct 37.0 % (39.0-52.0) L 09/23/24 02:28
Plt Count 244 10^3/uL (130-400) 09/23/24 02:28
PT 14.8 Sec (11.4-14.6) H 09/22/24 14:18
INR 1.11 09/22/24 14:18
APTT 35.1 Sec (23.4-35.0) H 09/22/24 14:18
Sodium 136 mmol/L (135-145) 09/23/24 02:28
Potassium 4.2 mmol/L (3.5-5.1) 09/23/24 18:44
BUN 19 mg/dl (9-20) 09/23/24 02:28
Creatinine 0.9 mg/dL (0.7-1.3) 09/23/24 02:28
Glucose 103 mg/dl (70-99) H 09/23/24 02:28
Troponins
09/22/24
14:18
Troponin I < 0.012
Vital Signs and I&O:
Vital Signs
Temp Pulse Resp BP Pulse Ox
97.9 F 58 16 130/75 96
09/24/24 07:02 09/24/24 07:48 09/24/24 07:48 09/24/24 07:05 09/24/24 07:48
Vital Signs
Temp Pulse Resp BP Pulse Ox
97.9 F 58 16 130/75 96
09/24/24 07:02 09/24/24 07:48 09/24/24 07:48 09/24/24 07:05 09/24/24 07:48
Intake & Output
09/22/24 09/23/24 09/24/24 09/25/24
06:59 06:59 06:59 06:59
Intake Total 400 / 400
Output Total 1100 / 1100 525 / 525
Balance -1100 / -1100 -125 / -125
Physical Exam
Physical Exam
����Physical Exam
���������������������General:��no apparent distress, not acutely ill
���������������������������Neck:��supple. no meningeal signs. normal psoterior pharynx
������������������������
���������������������������Heart:��s1/s2 regular rate and rhythm, no murmur. equal radial pulses.
��������������������������Lungs: ��no acute respiratory distress. clear bilaterally
����������������������Abdomen:�normal bowel sounds. not tender. no CVAT
��������������������������Neuro:��alert and oriented. no focal neurological deficits
������������������������������Skin: ��no rash
�����������������������Psychiatric:�well kept. interactive and cooperative
�����������������������Extremities:��no edema. no calf tenderness. negative homans. good distal pulses
��
�
[2024-09-24 09:25] LABS: Glucose - Point of Care 98 mg/dl (70-99)
[2024-09-24] MEDS: TYLENOL 1000 MG PO ×3 (09:25→21:00)
[2024-09-24] MEDS: PROTONIX 40 MG PO (09:25)
[2024-09-24] MEDS: LIPITOR 10 MG PO (09:25)
[2024-09-24] MEDS: FLOMAX 0.4 MG PO (09:26)
[2024-09-24] MEDS: MOBIC 15 MG PO (09:26)
[2024-09-24] MEDS: ZOVIRAX 400 MG PO ×2 (09:26→20:59)
[2024-09-24] MEDS: HEPARIN 5000 UNITS SC ×3 (09:26→23:28)
[2024-09-24] MEDS: MIRALAX 17 GRAMS PO (10:38)
[2024-09-24 11:58] VITALS: BP 133/77
[2024-09-24 12:19] LABS: Glucose - Point of Care 109 mg/dl (70-99)
[2024-09-24 15:54] VITALS: BP 133/76
[2024-09-24 17:08] LABS: Glucose - Point of Care 122 mg/dl (70-99)
--- NOTE | 2024-09-24 18:30 | PTCARENOTE ---
Pt had CT scan chest, mildly displaced rib fractures noted. Pt OOB to chair for most of the day, pt walking with walker. Pt not requesting dilaudid and states adequate pain control with tylenol and meloxicam. Telemetry shows continued mobitz type 1
rhythm with multiple 2 second pauses. Plan for pacemaker on 09/25.
[2024-09-24 20:01] VITALS: BP 137/90
--- NOTE | 2024-09-24 21:20 | PTCARENOTE ---
Received patient at change of shift. Patient sitting in chair, awake, alert, and oriented. Rib pain managed much better today-- used walker to help with ambulation. BP 137/90, Mobitz 1 with few pauses, 95% on room air. Discussed plan of care for
evening and what to expect after procedure tomorrow. Patient verbalized understanding. Call bernal within reach.
[2024-09-24] MEDS: MAALOX 30 ML PO (21:28)
[2024-09-24 21:32] LABS: Glucose - Point of Care 112 mg/dl (70-99)
[2024-09-24 23:27] VITALS: BP 140/81
[2024-09-25] VITALS (10 sets, daily range): BP systolic 132–166; BP diastolic 65–111
[2024-09-25 05:52] LABS: Hematocrit 36.9 % (39.0-52.0); Hemoglobin 12.9 g/dL (13.0-18.0); Mean Corpuscular Hgb 33.1 pg (27.0-31.0); Mean Corpuscular Volume 94.6 fL (80.0-94.0); Mean Platelet Volume 9.3 fL (7.4-10.4); Platelet Count 272 10^3/uL (130-400); Red Cell Dist. Width 13.1 % (11.5-14.5); White Blood Cell Count 7.2 10^3/uL (4.8-10.8)
[2024-09-25 06:18] LABS: Blood Urea Nitrogen 16 mg/dl (9-20); Calcium 9.2 mg/dl (8.4-10.2); Carbon Dioxide 22 mmol/L (22-30); Chloride 99 mmol/L (98-107); Estimated Creatinine Clearance 87 ml/min; Glucose 98 mg/dl (70-99); Potassium 4.7 mmol/L (3.5-5.1); Sodium 131 mmol/L (135-145); eGFR > 60.00
[2024-09-25] MEDS: TYLENOL 1000 MG PO ×3 (08:05→21:05)
[2024-09-25] MEDS: MOBIC 15 MG PO (08:06)
[2024-09-25] MEDS: LIPITOR 10 MG PO (08:06)
[2024-09-25] MEDS: PROTONIX 40 MG PO (08:06)
[2024-09-25] MEDS: FLOMAX 0.4 MG PO (08:06)
[2024-09-25] MEDS: ZOVIRAX 400 MG PO ×2 (08:06→21:05)
[2024-09-25] MEDS: MIRALAX PO (08:12)
[2024-09-25] MEDS: SPIRIVA RESPIMAT 2.5 MCG 2 PUFF INH (08:22)
[2024-09-25] MEDS: STRIVERDI RESPIMAT 2 PUFF INH (08:23)
[2024-09-25] MEDS: VENTOLIN NEBULES 1.25 MG INH (08:23)
[2024-09-25 08:47] LABS: Glucose - Point of Care 104 mg/dl (70-99)
[2024-09-25] MEDS: HEPARIN SC ×2 (09:02→16:59)
[2024-09-25 12:07] LABS: Glucose - Point of Care 93 mg/dl (70-99)
--- NOTE | 2024-09-25 13:10 | ITS.CL.PACE ---
Orderly - Pacemaker Implant
Pacemaker Implant
Procedure Report:
PACEMAKER IMPLANT REPORT
PCP: Dr. Gutierres
Art Editor: Dr. Lazarus Hale
Date of Procedure: September 25, 2024
Procedure:
Implantation of dual-chamber permanent pacemaker utilizing the left bundle branch for conduction system pacing
Indication/Diagnosis:
Non-reversible symptomatic bradycardia due to advanced AV conduction system disease with symptomatic type II second-degree AV block, syncope.
Presented after syncopal episode 09/20/24. Linq monitor noted 8 second and 20 second pause 09/20 around the time of syncope.
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
Echo 09/22/2024: EF 55 to 60%, mild concentric LVH, mitral sclerosis, mild MR, mild TR, estimated PAP 30 to 35 mmHg
After informed consent was obtained, 'time out' was called and confirmed, the patient was prepped and draped in a sterile fashion. Lidocaine with epi was used for local anesthesia. Central venous access was obtained via subclavian venipuncture. An
incision was made along the left chest and a pre-pectoral pocket was formed. Using a Seldinger technique and peel-away sheaths, the pacing leads were placed under fluoroscopic guidance.
Fluoroscopy was used to determine likely anatomic site for left bundle branch pacing. The Medtronic C315 sheath was used to deliver the Medtronic 3830 Selectsecure pacing lead with the helix exposed just exposed from the sheath tip during continuous
monitoring when pacemapping the septum during gentle clockwise rotation to obtain a paced QRS morphology of a W pattern in lead V1. Once the suspected optimal site was identified, lead deployment was performed with several rapid rotations as paced
QRS morphology was intermittently monitored until a paced QRS complex in lead V1 demonstrated development of an R wave [ ] (qR or rSR).
Unipolar pacing impedance dropped by approximately 100 Ohms suggesting it had reached the left ventricular subendocardial.
Stable VEgm injury current is present throughout final lead position including at end of case, suggesting there was no perforation through the septum into the LV cavity.
Unipolar pacing impedance is 950 Ohms
Unipolar pacing threshold is stable at 0.5 V @ 0.4 ms.
Final conduction system paced QRS complex duration is 95 ms
LVAT is 75 ms and peak V5 -> peak V1 timing is 39 ms
Right atrial lead was placed at the RAA.
Once testing (see below) showed adequate and stable function, the leads were secured using the suture sleeves. The pocket was liberally irrigated with antibiotic solution. The leads were connected to the generator header and the leads and
generator were placed within the pocket. Fluoroscopy confirmed stable lead position. The pocket was closed in the typical fashion.
Fluoroscopy was used to guide lead placement.
IMPLANTS:
Medtronic [id number], SN: [id number], Left Pectoral
RA: Medtronic 5076-45, SN: [id number], RAA
Left Bundle: Medtronic [id number] , SN:[id number], Interventricular septum at LBB
DEVICE TESTING:
Sensing: RA 1.4 mV, RV 11 mV
Capture: RA 1.875 V@0.4ms, RV 0.5 V@0.4ms
Ohms: RA 960, RV 980
FINAL PROGRAMMING
Frank Pacing: AAIR+ 60-130 ppm
COMPLICATIONS:
None
CONCLUSIONS:
Successful implant of dual chamber permanent pacemaker utilizing Left Bundle Branch conduction system capture for ventricular resynchronization pacing.
RECOMMENDATIONS:
1. Post-op care (tele, CXR, IV abx)
2. In-Office wound check in 5-7 days
--- NOTE | 2024-09-25 13:32 | W.PN.HOSP.TC ---
Today's Communication/Plan
-
PPM today
pain control
Assessment / Plan
Assessment / Plan
Physical Exam
General: Well Developed, Well Nourished and No Apparent Distress
HEENT: Normocephalic, Moist mucous membranes and Atraumatic
Respiratory: limited, no wheezes. Tenderness on right lower posterior chest wall
Cardiac: S1/S2
GI: Soft, Non Tender,obese.
Rectal: No bleeding.
Musculoskeletal: No Clubbing, No Cyanosis and No Edema. Back: tenderness around right lower posterior chest wall, no swelling or bruising.
Skin: No Rash
Neuro: Nonfocal/grossly intact, oriented X3
Psych: calm
# Right posterior chest wall pain 2/2 rib fracture
Tenderness on palpation, no bruising or swelling. No hypoxia.
started after he fell and direct trauma
X ray no fractures but could have missed it due to acuity of event
c/w Tylenol and PRN Dilaudid for now
CT chest -Mildly displaced fractures involving the posteromedial right 10th and 11th ribs near the costovertebral junctions.
# Syncope secondary to asystolic pauses
# History of recurrent syncopal episodes with Linq monitor
-N.p.o. for pacemaker Wednesday
-Chest/rib x-ray unremarkable
-Echo pending
-Cardiology following
# Hyperkalemia
-Continue to monitor-RESOLVED
#Mild hyponatremia
-trend bmp for now
Arthritis
-Continue meloxicam
Essential hypertension
Hyperlipidemia
-Continue statin
Type 2 diabetes
-Hold metformin
-On sliding scale
CKD
Prostate cancer
-Continue tamsulosin
Obstructive sleep apnea
Bronchiectasis
-Continue inhalers
Obesity
Herpes prevention
-Continue Valtrex
Full code
DVT prophylaxis�heparin
Regular diet
Discussed with patient spouse at bedside in details
Anticipated Discharge: Within 24 hours
Subjective/Interval History
-
Date of Service: September 25, 2024
states feeling tired and hungry
tele reviewed with bradycardia
Objective Data
-
Labs:
Laboratory Results
09/25/24
05:14
WBC 7.2
Hgb 12.9 L
Hct 36.9 L
Plt Count 272
Sodium 131 L
Potassium 4.7
Chloride 99
Carbon Dioxide 22
BUN 16
Creatinine 0.8
Glucose 98
Calcium 9.2
Vital Signs:
Vital Signs
Temp Pulse Resp BP Pulse Ox
98.3 F 62 20 160/79 96
09/25/24 11:49 09/25/24 10:00 09/25/24 11:49 09/25/24 07:44 09/25/24 11:49
I&O
09/24/24 09/25/24 09/26/24
06:59 06:59 06:59
Intake Total 400 / 400 400 / 400
Output Total 525 / 525 175 / 175 200 / 200
Balance -125 / -125 225 / 225 -200 / -200
--- NOTE | 2024-09-25 14:37 | ITS.CL.IMPLP ---
[employer] Operator - Implant Loop
Implant Loop
Procedure Report:
LINQ IMPLANTED MONITOR REMOVAL
Date of Procedure: September 25, 2024
PROCEDURES:
1. Removal of implanted loop recorder
INDICATION FOR PROCEDURE:
1. Loop Recorder at end of battery longevity
After informed consent was obtained,'time out' was called and confirmed, the patient was prepped and draped in a sterile fashion.
SEDATION: Via the anesthesia department with conscious sedation
Lidocaine with epi was used for local anesthesia. An incision was made along the prior incision and the Linq monitor was carefully dissected from the pocket. The pocket was liberally irrigated with antibiotic solution. The pocket was closed in
the typical fashion.
COMPLICATIONS:
nONE
CONCLUSIONS:
1. Removal of implanted loop recorder.
RECOMMENDATIONS:
In-Office wound check in 7-14 days.
--- NOTE | 2024-09-25 14:54 | W.PN.CARDCBS ---
Today's Communication / Plan
-
Normal functioning of the pacemaker and lead system after implantation yesterday.
From a cardiac standpoint he is stable for discharge to home today.
Impression / Plan
-
PCP: Dr. Gutierres
Roustabout Pusher: Dr. Lazarus Hale
Impression:
Presented after syncopal episode 09/20
R rib pain
20 second pause on Linq monitor 09/20
Hyperkalemia
Hyponatremia
Recurrent syncope
Wenckebach
Linq monitor 04/05/2023
HTN
HLD
DM2
CKD
h/o prostate cancer
Bronchiectasis
ELIA
Echo 10/25/2019: EF 60-65%, mild cLVH, posterior MAC, mild MR, trace TR, estimated PAP 34 mmHg
Echo 09/22/2024: EF 55 to 60%, mild concentric LVH, mitral sclerosis, mild MR, mild TR, estimated PAP 30 to 35 mmHg
Chest x-ray September 25, 2024 is postoperative from pacemaker implantation and demonstrates normal positioning of the right atrial and left bundle branch pacing lead with no pneumothorax.
Plan:
-He underwent implantation of dual-chamber permanent pacemaker, conduction system pacing via left bundle branch engagement. He is now postop day 1 and doing well. Telemetry monitoring has showed no further episodes of heart block, no nonsustained
VT. He remained hemodynamically stable.
Okay for discharge to home today
My office will arrange follow-up for both wound check in approximately 7 days and also a post pacemaker evaluation with one of our advanced practice professionals in 2 to 4 weeks.
Discharge instructions including arm motion restrictions reviewed with patient.
-Continue lipitor 10mg daily.
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 He presented to [facility] for evaluation after syncopal episode on .
He reports he had an upset stomach that day and had one episode of vomiting. He reports it was only a single episode of vomiting but then he became dizzy and had syncopal episode. Episode was not witnessed. He came back to and noted severe R sided
rib pain. Pain persisted over the next few days, so he called his PCP for an appointment this AM. He was seen and ordered a rib xray to assess for broken ribs, however given syncope, he was recommended to call the cardiology office for evaluation as
well. He had his Linq monitor disconnected at home, so with the help of device clinic [employer], monitor was rebooted and he was noted to have an 8 second and 20 second pause on 09/20 around the time of syncope. He was therefore referred to ER for PPM
placement. He reports he has been back to his usual state of health and has had no further nausea or vomiting. Denies any fevers, chest pain, palpitations, dizziness, lightheadedness, or SOB. His only ongoing complaint is R rib pain.
Progress Note - Roustabout Pusher
Subjective
Date of Service: September 25, 2024
He tells me that he is feeling reasonably well today. His discomfort from his fall and recent rib fractures is improved with pain management therapy.
Total Time Spent with Patient (in minutes): 35
Objective
Labs:
09/25/24 05:14
09/25/24 05:14
Labs
Hgb 12.9 g/dL (13.0-18.0) L 09/25/24 05:14
Hct 36.9 % (39.0-52.0) L 09/25/24 05:14
Plt Count 272 10^3/uL (130-400) 09/25/24 05:14
PT 14.8 Sec (11.4-14.6) H 09/22/24 14:18
INR 1.11 09/22/24 14:18
APTT 35.1 Sec (23.4-35.0) H 09/22/24 14:18
Sodium 131 mmol/L (135-145) L 09/25/24 05:14
Potassium 4.7 mmol/L (3.5-5.1) 09/25/24 05:14
BUN 16 mg/dl (9-20) 09/25/24 05:14
Creatinine 0.8 mg/dL (0.7-1.3) 09/25/24 05:14
Glucose 98 mg/dl (70-99) 09/25/24 05:14
Troponins
09/22/24
14:18
Troponin I < 0.012
Vital Signs and I&O:
Vital Signs
Temp Pulse Resp BP Pulse Ox
98.3 F 62 20 160/79 96
09/25/24 11:49 09/25/24 10:00 09/25/24 11:49 09/25/24 07:44 09/25/24 11:49
Vital Signs
Temp Pulse Resp BP Pulse Ox
98.3 F 62 20 160/79 96
09/25/24 11:49 09/25/24 10:00 09/25/24 11:49 09/25/24 07:44 09/25/24 11:49
Intake & Output
09/23/24 09/24/24 09/25/24 09/26/24
06:59 06:59 06:59 06:59
Intake Total 400 / 400 400 / 400
Output Total 1100 / 1100 525 / 525 175 / 175 200 / 200
Balance -1100 / -1100 -125 / -125 225 / 225 -200 / -200
Physical Exam
Physical Exam
Well-appearing no acute distress as he sitting in the chair watching television this morning.
Regular rate and rhythm with normal S1 and S2 no S3 no S4 is a grade 1/6 apical holosystolic murmur no rubs. PMI is normally placed.
Dressing over the left side upper chest is clean and dry
Lungs clear to auscultation bilaterally without wheezes rales or rhonchi
Abdomen soft nontender nondistended with normoactive bowel sounds
Extremities show no clubbing or cyanosis there is trace pretibial edema bilaterally
Neurologic exam is grossly nonfocal
--- NOTE | 2024-09-25 15:10 | PTCARENOTE ---
Pt returned from EP lab. L chest wall w/ steri strips aquacel and pressure dsg intact. No complaints at this time. Pt aware of 1 hr bedrest restriction. EKG completed. Call dolores w/in reach.
[2024-09-25 16:57] LABS: Glucose - Point of Care 75 mg/dl (70-99)
--- NOTE | 2024-09-25 17:25 | CM ---
spoke to pt in room, he is prev indep, lives with his wifein a 2 story home with 2 steps to enter. he denies any dme's or dc planning needs. plan is for dc to home when medically stable
[2024-09-25 22:10] LABS: Glucose - Point of Care 117 mg/dl (70-99)
--- NOTE | 2024-09-25 22:17 | PTCARENOTE ---
Received patient at change of shift. Patient sitting in chair, awake, alert, and oriented. Left chest wall pressure dressing clean, dry, and intact-- no swelling, hematoma, or ecchymosis at this time. Immobilizer on. BP 132/83, NSR with first degree
block and occasional pacing, 98% on room air. Discussed plan of care and activity restrictions. Call bernal within reach.
[2024-09-25] MEDS: HEPARIN 5000 UNITS SC (23:18)
[2024-09-25] MEDS: DILAUDID 0.5 MG IV (23:19)
[2024-09-26 04:22] VITALS: BP 156/78
[2024-09-26 05:28] LABS: Hematocrit 41.1 % (39.0-52.0); Hemoglobin 13.8 g/dL (13.0-18.0); Mean Corp Hgb Conc. 33.6 g/dL (33.0-37.0); Mean Corpuscular Hgb 32.5 pg (27.0-31.0); Mean Corpuscular Volume 96.9 fL (80.0-94.0); Mean Platelet Volume 9.4 fL (7.4-10.4); Platelet Count 266 10^3/uL (130-400); Red Blood Cell Count 4.24 10^6/uL (4.70-6.10); Red Cell Dist. Width 13.3 % (11.5-14.5); White Blood Cell Count 7.8 10^3/uL (4.8-10.8)
[2024-09-26 05:50] LABS: Blood Urea Nitrogen 22 mg/dl (9-20); Calcium 9.6 mg/dl (8.4-10.2); Carbon Dioxide 21 mmol/L (22-30); Chloride 104 mmol/L (98-107); Estimated Creatinine Clearance 77 ml/min; Glucose 89 mg/dl (70-99); Sodium 136 mmol/L (135-145); eGFR > 60.00
[2024-09-26 07:35] VITALS: BP 153/90
[2024-09-26 07:40] LABS: Glucose - Point of Care 89 mg/dl (70-99)
[2024-09-26] MEDS: SPIRIVA RESPIMAT 2.5 MCG 2 PUFF INH (07:44)
[2024-09-26] MEDS: VENTOLIN NEBULES 1.25 MG INH (07:44)
[2024-09-26] MEDS: STRIVERDI RESPIMAT 2 PUFF INH (07:45)
[2024-09-26] MEDS: MIRALAX 17 GRAMS PO (08:14)
[2024-09-26] MEDS: MOBIC 15 MG PO (08:15)
[2024-09-26] MEDS: PROTONIX 40 MG PO (08:15)
[2024-09-26] MEDS: ZOVIRAX 400 MG PO (08:15)
[2024-09-26] MEDS: FLOMAX 0.4 MG PO (08:16)
[2024-09-26] MEDS: TYLENOL 1000 MG PO (08:16)
[2024-09-26] MEDS: LIPITOR 10 MG PO (08:16)
[2024-09-26] MEDS: HEPARIN 5000 UNITS SC (08:16)
[2024-09-26 08:46] VITALS: BP 154/79
[2024-09-26 09:08] VITALS: BP 154/79; PULSE 82
[2024-09-26 09:45] VITALS: BP 154/79; PULSE 83
--- NOTE | 2024-09-26 10:43 | W.PN.HOSP.TC ---
Today's Communication/Plan
-
dc home
walker Rx provided
Assessment / Plan
Assessment / Plan
Physical Exam
General: Well Developed, Well Nourished and No Apparent Distress
HEENT: Normocephalic, Moist mucous membranes and Atraumatic
Respiratory: limited, no wheezes. Tenderness on right lower posterior chest wall
Cardiac: S1/S2
GI: Soft, Non Tender,obese.
Rectal: No bleeding.
Musculoskeletal: No Clubbing, No Cyanosis and No Edema. Back: tenderness around right lower posterior chest wall, no swelling or bruising.
Skin: No Rash
Neuro: Nonfocal/grossly intact, oriented X3
Psych: calm
# Right posterior chest wall pain 2/2 rib fracture
Tenderness on palpation, no bruising or swelling. No hypoxia.
started after he fell and direct trauma
X ray no fractures but could have missed it due to acuity of event
c/w Tylenol and PRN Dilaudid for now
CT chest -Mildly displaced fractures involving the posteromedial right 10th and 11th ribs near the costovertebral junctions.
# Syncope secondary to asystolic pauses
# History of recurrent syncopal episodes with Linq monitor
-Chest/rib x-ray unremarkable
-s/p PPM on 09/25 and LINQ removal. OP cards f/u
-Cardiology following
# Hyperkalemia
-Continue to monitor-RESOLVED
#Mild hyponatremia
-trend bmp for now
Arthritis
-Continue meloxicam
Essential hypertension
Hyperlipidemia
-Continue statin
Type 2 diabetes
-Hold metformin
-On sliding scale
CKD
Prostate cancer
-Continue tamsulosin
Obstructive sleep apnea
Bronchiectasis
-Continue inhalers
Obesity
Herpes prevention
-Continue Valtrex
Full code
DVT prophylaxis�heparin
Regular diet
Discussed with patient spouse at bedside in details 09/25 and 09/26
More than 30 minutes spent in discharge including
Final examination of the patient
Summarizing hospital stay
Instructions for continuing care to all relevant caregivers
Preparation of discharge records, prescriptions, and referral forms
Total time spent (in minutes): 52
Anticipated Discharge: Today
Subjective/Interval History
-
Date of Service: September 26, 2024
feeling better
tolerating diet
PPM site covered in dressing
Objective Data
-
Labs:
Laboratory Results
09/26/24
05:09
WBC 7.8
Hgb 13.8
Hct 41.1
Plt Count 266
Sodium 136
Potassium 5.0
Chloride 104
Carbon Dioxide 21 L
BUN 22 H
Creatinine 0.9
Glucose 89
Calcium 9.6
Vital Signs:
Vital Signs
Temp Pulse Resp BP Pulse Ox
98.3 F 66 18 154/79 98
09/26/24 07:32 09/26/24 09:30 09/26/24 07:54 09/26/24 08:46 09/26/24 07:54
I&O
09/25/24 09/26/24 09/27/24
06:59 06:59 06:59
Intake Total 400 / 400 400 / 400
Output Total 175 / 175 450 / 450
Balance 225 / 225 -50 / -50
--- NOTE | 2024-09-26 10:47 | W.DCSUMMARY ---
Discharge Summary
Discharge Data
Date of Admission: 09/22/24
Date of Discharge: 09/26/24
-
Pending Results: No
Hospital Course
79-year-old male extensive past medical history of primary hypertension, hyperlipidemia, , CKD, history of prostate cancer, ELIA, recurrent syncope status post Linq monitor placement is presenting from home with recurrent syncope. Patient had
episode of syncope during [facility] presenting with upset stomach and vomiting. Patient was also complaining of rib cage pain and CT chest showed with fracture. Patient outpatient Linq monitor was interrogated and was found that patient had
8-second 20 second pauses during syncope episode. Patient was recommended come to the ER. Patient was eval by cardiology. Patient was seen by meter installer and remover and patient underwent Linq removal and pacemaker implantation. Postop patient did
well post procedure. Patient will follow-up outpatient with cardiology for pacemaker post op f/u. Patient was seen by physical and Occupational Therapy. Patient be discharged home with a walker.
Discharge Plan
-
Patient Disposition: Home (Routine Discharge)
Discharge Diagnosis/Procedures: Syncope secondary to bradycardia status post pacemaker implant and Linq removal
Condition: Fair
Diet: As tolerated
Activity: With assistance and As tolerated
Driving Restrictions: No driving for 1 week
Stand Alone Forms: DC Inst - Implanted Device
Referrals:
[facility] [Provider Group] - 10/02/24 1:00 pm (Post device incision check appointment)
[facility] [Outside]
Neeru Rizzo MD [Family Provider] - in less than 1 week ([phone]
Bhargav Hale MD [Active] - 10/04/24 1:20 pm (you have an incision check appointment in the pacemaker clinic at Dr Hale's office in the [facility])
Barbie Contreras CRNP [Specified Professional Personl] - 10/09/24 1:40 pm (You have an appointment with FAITH Ballesteros, Dr Hale's nurse practitioner on 10/09/2024 at the [facility]. Please call with questions.)
Prescriptions:
Continued
loperamide 2 MG capsule
2 mg PO BIDPRN PRN (Reason: diarrhea)
metformin 500 MG tablet
500 mg PO QPM
atorvastatin 10 MG tablet
10 mg PO DAILY
cholecalciferol (vitamin D3) [Vitamin D3] 25 mcg (1,000 unit) Tablet
25 mcg PO DAILY Qty: 0
pantoprazole 40 MG tablet,delayed release (DR/EC)
40 mg PO DAILY Qty: 30 0RF
meloxicam 15 MG tablet
15 mg PO DAILY
albuterol sulfate 1.25 mg/3 mL Solution For Nebulization
1.25 mg INHALATION R DAILY
acyclovir 400 mg Tablet
400 mg PO BID
tamsulosin [Flomax] 0.4 mg Capsule
0.4 mg PO DAILY
azelastine 137 mcg (0.1 %) Hematite,Non-Aerosol
1 spray INTRANASAL DAILY
Anoro Ellipta 62.5-25 mcg/actuation Blister With Device
1 inh INHALATION R DAILY
Discharge Orders:
Discharge Patient (As Directed); Ordered 09/26/24
Ordered By: Satnam Francisco
Care Plan Goals
Care Plan Goals:
Problem: Readiness for enhanced knowledge related to diagnosis and treatment plan
Goal: Understand your diagnosis and treatment plan needs, including medications if applicable.
Instructions: Know your diagnosis, underlying causes and treatment plan options, including medications if applicable. Consult with your health care team to learn about your diagnosis and treatment plan, including medications if applicable.
Discharge Date and Time
Discharge Date/Time: 09/26/24 12:17
Print Language: YORUBA
[2024-09-26] MEDS: MAALOX 30 ML PO (10:58)
--- NOTE | 2024-09-26 11:06 | W.PN.CARDCBS ---
Addendum entered and electronically signed by Bhargav Hale MD 09/26/24 11:46:
Stable for DC to home
Original Note:
Today's Communication / Plan
-
D/C to home today
Impression / Plan
-
PCP: Dr. Gutierres
Media Liaison Officer: Dr. Lazarus Hale
Impression:
Presented after syncopal episode 09/20
R rib pain
20 second pause on Linq monitor 09/20
Hyperkalemia
Hyponatremia
Recurrent syncope
Wenckebach
Linq monitor 04/05/2023
HTN
HLD
DM2
CKD
h/o prostate cancer
Bronchiectasis
ELIA
Echo 10/25/2019: EF 60-65%, mild cLVH, posterior MAC, mild MR, trace TR, estimated PAP 34 mmHg
Echo 09/22/2024: EF 55 to 60%, mild concentric LVH, mitral sclerosis, mild MR, mild TR, estimated PAP 30 to 35 mmHg
Chest x-ray September 25, 2024 is postoperative from pacemaker implantation and demonstrates normal positioning of the right atrial and left bundle branch pacing lead with no pneumothorax.
Plan:
-He underwent implantation of dual-chamber permanent pacemaker, conduction system pacing via left bundle branch engagement 09/25/24. He is now postop day 1 and doing well. Telemetry monitoring has showed no further episodes of heart block, no
nonsustained VT. He remained hemodynamically stable.
-Pressure dressing removed and underlying Aquacel inspected and minimal drainage. Activity limitations reviewed with patient and partner sitting bedside.
-Okay for discharge to home 09/26/24
-My office will arrange follow-up for both wound check in approximately 7 days and also a post pacemaker evaluation with one of our advanced practice professionals in 2 to 4 weeks.
Discharge instructions including arm motion restrictions reviewed with patient.
-Continue Lipitor 10mg daily.
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 He presented to [facility] for evaluation after syncopal episode on .
He reports he had an upset stomach that day and had one episode of vomiting. He reports it was only a single episode of vomiting but then he became dizzy and had syncopal episode. Episode was not witnessed. He came back to and noted severe R sided
rib pain. Pain persisted over the next few days, so he called his PCP for an appointment this AM. He was seen and ordered a rib xray to assess for broken ribs, however given syncope, he was recommended to call the cardiology office for evaluation as
well. He had his Linq monitor disconnected at home, so with the help of device clinic CLINICAL MOLECULAR GENETICIST, monitor was rebooted and he was noted to have an 8 second and 20 second pause on 09/20 around the time of syncope. He was therefore referred to ER for PPM
placement. He reports he has been back to his usual state of health and has had no further nausea or vomiting. Denies any fevers, chest pain, palpitations, dizziness, lightheadedness, or SOB. His only ongoing complaint is R rib pain.
Progress Note - Media Liaison Officer
Subjective
Date of Service: September 26, 2024
Feels great and wants to go home
Objective
Labs:
09/26/24 05:09
09/26/24 05:09
Labs
Hgb 13.8 g/dL (13.0-18.0) 09/26/24 05:09
Hct 41.1 % (39.0-52.0) 09/26/24 05:09
Plt Count 266 10^3/uL (130-400) 09/26/24 05:09
PT 14.8 Sec (11.4-14.6) H 09/22/24 14:18
INR 1.11 09/22/24 14:18
APTT 35.1 Sec (23.4-35.0) H 09/22/24 14:18
Sodium 136 mmol/L (135-145) 09/26/24 05:09
Potassium 5.0 mmol/L (3.5-5.1) 09/26/24 05:09
BUN 22 mg/dl (9-20) H 09/26/24 05:09
Creatinine 0.9 mg/dL (0.7-1.3) 09/26/24 05:09
Glucose 89 mg/dl (70-99) 09/26/24 05:09
Vital Signs and I&O:
Vital Signs
Temp Pulse Resp BP Pulse Ox
98.3 F 66 18 154/79 98
09/26/24 07:32 09/26/24 09:30 09/26/24 07:54 09/26/24 08:46 09/26/24 07:54
Vital Signs
Temp Pulse Resp BP Pulse Ox
98.3 F 66 18 154/79 98
09/26/24 07:32 09/26/24 09:30 09/26/24 07:54 09/26/24 08:46 09/26/24 07:54
Intake & Output
09/24/24 09/25/24 09/26/24 09/27/24
06:59 06:59 06:59 06:59
Intake Total 400 / 400 400 / 400 400 / 400
Output Total 525 / 525 175 / 175 450 / 450
Balance -125 / -125 225 / 225 -50 / -50
Physical Exam
Physical Exam
Well-appearing no acute distress as he sitting in the chair watching television this morning.
Regular rate and rhythm with normal S1 and S2 no S3 no S4 is a grade 1/6 apical holosystolic murmur no rubs. PMI is normally placed.
Dressing over the left side upper chest is clean and dry
Lungs clear to auscultation bilaterally without wheezes rales or rhonchi
Abdomen soft nontender nondistended with normoactive bowel sounds
Extremities show no clubbing or cyanosis there is trace pretibial edema bilaterally
Neurologic exam is grossly nonfocal
--- NOTE | 2024-09-26 11:13 | CM ---
Reviewed chart. Met with and Mrs. Rey to review discharge plans. We reviewed [facility] and he is agreeable to [facility]. He has selected [facility]. Telephone call to [facility] to make the referral. Left Message. Sent
the referral. Prior to admission he resides with his spouse in a two sto ry home with two steps to enter. Medical work-up in progress. The discharge plan is to return home with his spouse and [facility] when medically stable.
--- NOTE | 2024-09-26 12:14 | PTCARENOTE ---
Pt sitting OOB in chair, reviewed D/C instruction with him and his , they expressed understanding and he was able to teach back what he learned.
== END 2024-09-26 12:17 | disposition home health service (06) | DRG 243 ==
LOC: IVU 17:05
PROVIDERS: Emergency Medicine; Internal Medicine; Internal Medicine Cardiovascular Disease; Nurse Practitioner; ADMITTING PHYSICIAN Hospitalist; ATTENDING PHYSICIAN Hospitalist; CONSULT PHYSICIAN Internal Medicine Cardiovascular Disease; EMERGENCY PHYSICIAN Emergency Medicine; FAMILY PHYSICIAN Family Medicine
PROC: 02H63JZ Insertion of Pacemaker Lead into Right Atrium, Percutaneous Approach (ICD-10-PCS; 2024-09-25)
PROC: 02HK3JZ Insertion of Pacemaker Lead into Right Ventricle, Percutaneous Approach (ICD-10-PCS; 2024-09-25)
PROC: 0JPT02Z Removal of Monitoring Device from Trunk Subcutaneous Tissue and Fascia, Open Approach (ICD-10-PCS; 2024-09-25)
PROC: 0JH606Z Insertion of Pacemaker, Dual Chamber into Chest Subcutaneous Tissue and Fascia, Open Approach (ICD-10-PCS; 2024-09-25)
DX: I44.1 Atrioventricular block, second degree (principal); E87.1 Hypo-osmolality and hyponatremia; S22.41XA Multiple fractures of ribs, right side, initial encounter for closed fracture; R00.1 Bradycardia, unspecified; E11.22 Type 2 diabetes mellitus with diabetic chronic kidney disease; E78.5 Hyperlipidemia, unspecified; I12.9 Hypertensive chronic kidney disease with stage 1 through stage 4 chronic kidney disease, or unspecified chronic kidney disease; G47.33 Obstructive sleep apnea (adult) (pediatric); E66.9 Obesity, unspecified; J47.9 Bronchiectasis, uncomplicated; N18.9 Chronic kidney disease, unspecified; E87.5 Hyperkalemia; M19.90 Unspecified osteoarthritis, unspecified site; X58.XXXA Exposure to other specified factors, initial encounter; K21.9 Gastro-esophageal reflux disease without esophagitis; Z79.84 Long term (current) use of oral hypoglycemic drugs; Z79.899 Other long term (current) drug therapy; Z82.49 Family history of ischemic heart disease and other diseases of the circulatory system; Z85.46 Personal history of malignant neoplasm of prostate; Z86.711 Personal history of pulmonary embolism
CPT/HCPCS: 33208; 33286; 71045; 71250; 80048; 80053; 82962; 83036; 83735; 84132; 84484; 85025; 85027; 85610; 85730; 93005; 93306; 94640; 97162; 97166; 99285; C1769; C1785; C1887; C1892; C1898; Q9967

== ENCOUNTER → 2025-02-01 15:42 | Outpatient (REF) | payer OTHER, SELFPAY | LOC: HWRAD 15:42 | PROVIDERS: ATTENDING PHYSICIAN Physician Assistant Medical | DX: M25.561 Pain in right knee (principal); Z96.651 Presence of right artificial knee joint | CPT/HCPCS: 73564 ==

== ENCOUNTER → 2025-03-09 12:58 | Outpatient (REF) | payer OTHER, SELFPAY | LOC: HWRAD 12:58 | PROVIDERS: ATTENDING PHYSICIAN Family Medicine | DX: R51.9 Headache, unspecified (principal); S09.90XD Unspecified injury of head, subsequent encounter | CPT/HCPCS: 70450 ==

== ENCOUNTER → 2025-09-25 15:01 | Outpatient (REF) | payer OTHER, SELFPAY | LOC: HWRCS 15:01 | PROVIDERS: ATTENDING PHYSICIAN Internal Medicine Cardiovascular Disease; FAMILY PHYSICIAN Family Medicine | DX: R55 Syncope and collapse (principal) | CPT/HCPCS: 93306 ==